=== PATIENT | male | born 1980 | race Caucasian/White ===

== ENCOUNTER 2018-05-18 14:33 | Emergency (ER) | payer BC ==
[~2018-05-18] VITALS: Ht 170.2 cm; Wt 95.3 kg
[2018-05-18 14:49] VITALS: BP 131/78
[2018-05-18] MEDS ORDERED: PROAIR HFA8.5 GM INH (15:12)
[2018-05-18] MEDS ORDERED: BENZ100C PO (15:12)
[2018-05-18] MEDS ORDERED: PRED50TA PO (15:12)
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
[2018-05-18] MEDS ORDERED: predniSONE 10 MG TABLET PO ONE (15:15)
[2018-05-18] MEDS ORDERED: BENZONATATE 100 MG CAPSULE. PO ONE (15:15)
[2018-05-18] MEDS ORDERED: IPRATRPIUM/ALBUTEROL 0.5/2.5MG 3 ML NEBU. NEB ONE (15:15)
== END 2018-05-18 15:48 | disposition home or self-care (01) ==
LOC: ER 14:33
DX: J40 Bronchitis, not specified as acute or chronic (principal)
CPT/HCPCS: 94640; 99283; J7512; J7620

== ENCOUNTER 2018-05-25 09:01 | Emergency (ER) | payer BC ==
[~2018-05-25] VITALS: Ht 167.6 cm; Wt 95.3 kg
[~2018-05-25 09:01] MED LIST: BENZ100C PO; PRED50TA PO; PROAIR HFA8.5 GM INH
[2018-05-25 09:10] VITALS: BP 129/89
--- NOTE | 2018-05-25 09:40 | RAD ---
3 view left rib detail series and PA view chest x-ray Clinical indications: Left-sided posterior lower rib pain after coughing to hard. Cough for one week. FINDINGS: No acute left rib fracture is evident. No acute lung. A pleural effusion or pulmonary edema or pneumothorax is seen. The heart size is at the upper limits of normal. The pulmonary vasculature and mediastinum and both lyle are unremarkable. IMPRESSION: No acute left rib fracture. Electronically signed by: North Dunne MD (05/25/2018 9:37 AM) [facility]
[2018-05-25] MEDS ORDERED: HYDR5SUS PO (10:04)
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
== END 2018-05-25 10:16 | disposition home or self-care (01) ==
LOC: ER 09:01
DX: R07.81 Pleurodynia (principal); R05 Cough
CPT/HCPCS: 71101; 99283